=== PATIENT | male | born 1975 | race Caucasian/White ===

== ENCOUNTER 2016-04-21 22:32 | Emergency (ER) | payer SELFPAY ==
[~2016-04-21] VITALS: Ht 180.3 cm; Wt 80.0 kg
[2016-04-21 22:39] VITALS: BP 125/100; PULSE 76; RESP 16; TEMP 97.6; O2SAT 98
[2016-04-21] MEDS ORDERED: KETOROLAC TROMETHAMINE 30 MG/ML (IVP) VIAL IVP ONE (22:45)
[2016-04-21] MEDS ORDERED: SODIUM CHLORIDE 0.9% FLUSH 5 ML FLUSH IVF PRN (22:45)
[2016-04-21 23:24] LABS: AUTOMATED NEUTROPHIL # 6.3 TH/MM3 (1.8-7.7); BASOPHIL # 0.1 TH/MM3 (0-0.2); BASOPHIL % 0.5 % (0.0-2.0); EOSINOPHIL # 0.1 TH/MM3 (0-0.4); EOSINOPHIL % 1.2 % (0.0-4.0); HEMATOCRIT 43.4 % (39.0-51.0); HEMO FLAGS DIFF FINAL; LYMPHOCYTE # 3.4 TH/MM3 (1.0-4.8); MEAN CORPUSCULAR HEMOGLOBIN 28.3 PG (27.0-34.0); MEAN CORPUSCULAR HGB CONC 34.5 % (32.0-36.0); MONO % 7.8 % (0.0-8.0); NEUT % 58.5 % (16.0-70.0); PLATELET COUNT 255 TH/MM3 (150-450); RED BLOOD COUNT 5.29 MIL/MM3 (4.50-5.90); RED CELL DISTRIBUTION WIDTH 13.3 % (11.6-17.2); WHITE BLOOD COUNT 10.7 TH/MM3 (4.0-11.0)
--- NOTE | 2016-04-21 23:30 | RADRPT ---
EXAM DATE/TIME: 04/21/2016 23:00 [place] COMPARISON: No previous studies available for comparison. INDICATIONS : Right flank pain. Difficulty urinating for 1 week. ORAL CONTRAST: No oral contrast ingested. RADIATION DOSE: 13.55 CTDIvol (mGy) MEDICAL HISTORY : None SURGICAL HISTORY : None. ENCOUNTER: Initial ACUITY: 1 week PAIN SCALE: 10/10 LOCATION: Right flank TECHNIQUE: Volumetric scanning of the abdomen and pelvis was performed. Using automated exposure control and ad justment of the mA and/or kV according to patient size, radiation dose was kept as low as reasonably achievable to obtain optimal diagnostic quality images. FINDINGS: LOWER LUNGS: The visualized lower lungs are clear. LIVER: Homogeneous density without lesion for noncontrast technique. There is no dilation of the biliary tr ee. No calcified gallstones. SPLEEN: Normal size without lesion. PANCREAS: Within normal limits. KIDNEYS: Symmetric renal size. There is mild dilation of the collecting system of the right kidney and mild d ilation of the entire right ureter. There is a 3 mm obstructing stone in the distal right ureter krista roximately 1 cm proximal to the ureterovesical junction. No additional calcified stones the collecti ng system the right kidney. No calcified stones or hydronephrosis in the left kidney/ureter. ADRENAL GLANDS: Within normal limits. VASCULAR: There is no aortic aneurysm. BOWEL/MESENTERY: The stomach, small bowel, and colon demonstrate no acute abnormality. There is no free intraperitone al air or fluid. The appendix is identified in the right lower quadrant and is normal appearance. ABDOMINAL WALL: Within normal limits. RETROPERITONEUM: There is no lymphadenopathy. BLADDER: No wall thickening or mass. REPRODUCTIVE: Within normal limits. INGUINAL: There is no lymphadenopathy or hernia. MUSCULOSKELETAL: Within normal limits for patient age. CONCLUSION: Positive renal colic CT with an obstructing 3 mm calcified stone distal right ureter causing mild hyd roureter and hydronephrosis. No additional renal calcifications are seen. Skip Xavier MD on April 21, 2016 at 23:25 Board Certified Radiologist. This report was verified electronically.
[2016-04-21 23:37] LABS: BICARBONATE 26.7 MEQ/L (21.0-32.0); POTASSIUM 3.7 MEQ/L (3.5-5.1)
[2016-04-22 00:10] LABS: BLOOD, URINE SMALL (NEG); COMMENT (UR) CULT NOT INDICATED; CULTURE IF INDICATED CULT NOT INDICATED; GLUCOSE,URINE NEG (NEG); KETONE, URINE TRACE mg/dL (NEG); MUCUS URINE FEW /lpf (OCC); NITRITE,URINE NEG (NEG); PH, URINE 7.5 (5.0-8.5); URINE COLOR YELLOW (YELLW/STRAW)
[2016-04-22] MEDS ORDERED: TAMS5CAP PO (00:43)
[2016-04-22] MEDS ORDERED: HYDR-3534 PO (00:43)
--- NOTE | 2016-04-22 00:43 | PD ---
HPI Chief Complaint: Flank/Kidney Pain Time Seen by Provider: 22:41 Travel History International Travel<30 days: No Contact w/Intl Traveler<30days: No Traveled to known affect area: No History of Present Illness HPI 40-year-old male arrives with right sided flank pain that radiates to the right groin. Duration is been about 2 hours. The pain started suddenly. It has since been severe. He had vague right flank pain which seemed to migrate towards the abdomen over the past few days. He's had no fever. He is observed hematuria. He has a history of kidney stones. Morphine given by EMS helped significantly. [facility] Past Medical History Medical History: Denies Significant Hx Immunizations Current: Yes Past Surgical History Surgical History: No Previous Surgery Social History Alcohol Use: No Tobacco Use: No Substance Use: Yes (marijuana) Allergies-Medications (Allergen,Severity, Reaction): Coded Allergies: No Known Allergies (Unverified , 04/21/16) Reported Meds & Prescriptions Reported Meds & Active Scripts Active Flomax (Tamsulosin HCl) 0.4 Mg Cap 0.4 Mg PO HS Lortab (Hydrocodone-Acetaminophen) 7.5-325 Mg Tab 1-2 Tab PO Q6H PRN Review of Systems Except as stated in HPI: all other systems reviewed are Neg Physical Exam Narrative GENERAL: 40-year-old male distress well-nourished well-developed SKIN: Warm and dry. HEAD: Atraumatic. Normocephalic. EYES: Pupils equal and round. No scleral icterus. No injection or drainage. ENT: No nasal bleeding or discharge. Mucous membranes pink and moist. NECK: Trachea midline. No JVD. CARDIOVASCULAR: Regular rate and rhythm. No murmur appreciated. RESPIRATORY: No accessory muscle use. Clear to auscultation. Breath sounds equal bilaterally. GASTROINTESTINAL: Tenderness to percussion right flank. Soft. MUSCULOSKELETAL: No obvious deformities. No clubbing. No cyanosis. No edema. NEUROLOGICAL: Awake and alert. No obvious cranial nerve deficits. Motor grossly within normal limits. Normal speech. PSYCHIATRIC: Appropriate mood and affect; insight and judgment normal. Data Data Last Documented VS Vital Signs Date Time Temp Pulse Resp B/P Pulse Ox O2 Delivery O2 Flow Rate FiO2 04/21/16 22:39 76 16 125/100 98 Room Air Orders Basic Metabolic Panel (Bmp) (04/21/16 22:42) Complete Blood Count With Diff (04/21/16 22:42) Urinalysis - C+S If Indicated (04/21/16 22:42) Ct Abd/Pel W/O Iv Contrast (04/21/16 22:42) Iv Access Insert/Monitor (04/21/16 22:42) Ecg Monitoring (04/21/16 22:42) Oximetry (04/21/16 22:42) Sodium Chloride 0.9% Flush (Ns Flush) (04/21/16 22:45) Ketorolac Inj (Toradol Inj) (04/21/16 22:45) Morphine Inj (Morphine Inj) (04/22/16 01:15) Tamsulosin (Flomax) (04/22/16 01:15) Labs Laboratory Tests Test 04/21/16 04/21/16 22:56 23:53 White Blood Count 10.7 TH/MM3 Red Blood Count 5.29 MIL/MM3 Hemoglobin 15.0 GM/DL Hematocrit 43.4 % Mean Corpuscular Volume 82.0 FL Mean Corpuscular Hemoglobin 28.3 PG Mean Corpuscular Hemoglobin 34.5 % Concent Red Cell Distribution Width 13.3 % Platelet Count 255 TH/MM3 Mean Platelet Volume 7.8 FL Neutrophils (%) (Auto) 58.5 % Lymphocytes (%) (Auto) 32.0 % Monocytes (%) (Auto) 7.8 % Eosinophils (%) (Auto) 1.2 % Basophils (%) (Auto) 0.5 % Neutrophils # (Auto) 6.3 TH/MM3 Lymphocytes # (Auto) 3.4 TH/MM3 Monocytes # (Auto) 0.8 TH/MM3 Eosinophils # (Auto) 0.1 TH/MM3 Basophils # (Auto) 0.1 TH/MM3 CBC Comment DIFF FINAL Differential Comment Sodium Level 141 MEQ/L Potassium Level 3.7 MEQ/L Chloride Level 104 MEQ/L Carbon Dioxide Level 26.7 MEQ/L Anion Gap 10 MEQ/L Blood Urea Nitrogen 12 MG/DL Creatinine 1.04 MG/DL Estimat Glomerular Filtration 80 ML/MIN Rate Random Glucose 103 MG/DL Calcium Level 8.8 MG/DL Urine Color YELLOW Urine Turbidity HAZY Urine pH 7.5 Urine Specific [place] 1.020 Urine Protein TRACE mg/dL Urine Glucose (UA) NEG mg/dL Urine Ketones TRACE mg/dL Urine Occult Blood SMALL Urine Nitrite NEG Urine Bilirubin NEG Urine Urobilinogen LESS THAN 2.0 MG/DL Urine Leukocyte Esterase NEG Urine RBC 11 /hpf Urine WBC 1 /hpf Urine Mucus FEW /lpf Microscopic Urinalysis Comment CULT NOT INDICATED MDM Medical Decision Making Medical Screen Exam Complete: Yes Emergency Medical Condition: Yes Differential Diagnosis Constipation, Gastritis, Acute Cholecystitis, Biliary Colic, Pancreatitis, BUSH , Hepatitis, Bowel Obstruction, Cystitis, Mesenteric Ischemia, AAA, Appendicitis , Renal Stone/Hydronephrosis, GERD, perforated viscous Narrative Course CBC & BMP Diagram 04/21/16 22:56 Urinalysis: Hematuria present Last 24 hours Impressions Abdomen/Pelvis CT 04/21/16 4122 Signed Impressions: Service Date/Time: Saturday, April 21, 2016 23:00 - CONCLUSION: Positive renal colic CT with an obstructing 3 mm calcified stone distal right ureter causing mild hydroureter and hydronephrosis. No additional renal calcifications are seen. Skip Xavier MD The patient is resting comfortably and feels better, is alert and in no distress. The patients results and examination findings were discussed. The repeat examination is unremarkable and benign. The history, exam, diagnostic testing, and current condition do not suggest any significant pathology to warrant further testing, continued ED treatment, admission, or surgical evaluation at this point. The vital signs have been stable. The patient does not have uncontrollable pain, intractable vomiting, or other significant symptoms. The patient's condition is stable and appropriate for discharge. The patient will pursue further outpatient evaluation with a primary care physician or other designated or consulting physician as indicated in the discharge instructions. The patient expressed understanding and was agreeable with this plan. Diagnosis Primary Impression: Hydronephrosis with urinary obstruction due to ureteral calculus Referrals: Mohan Alonzo MD 2 days Additional Instructions: You have a choice when it comes to health care, and we are glad that you chose [facility]. Hopefully, we have met your expectations on today's visit. You are welcome to return to [facility] at any time, as we are committed to meeting the health care needs of our community. Med/Other Pt SpecificInfo: Prescription(s) given Scripts Tamsulosin (Flomax)0.4 Mg Cap0.4 Mg PO HS #7 CAP Ref 0 Prov:Hernandez Membreno MD 04/22/16 Hydrocodone-Acetaminophen (Lortab)7.5-325 Mg Tab1-2 Tab PO Q6H PRN (PAIN SCALE 6 TO 10) #20 TAB Ref 0 Prov:Hernandez Membreno MD 04/22/16 Disposition: 01 DISCHARGE HOME Condition: Stable Hernandez Membreno MD Apr 22, 2016 00:43
[2016-04-22] MEDS ORDERED: TAMSULOSIN HCL 0.4 MG CAP PO ONE (01:15)
[2016-04-22] MEDS ORDERED: MORPHINE SULFATE 8 MG/ML INJ IV PUSH ONE (01:15)
[2016-04-22 01:30] VITALS: BP 117/73; PULSE 70; RESP 16; O2SAT 98
== END 2016-04-22 01:58 | disposition home or self-care (01) ==
LOC: NEPE 22:32
DX: N13.2 Hydronephrosis with renal and ureteral calculous obstruction (principal); R31.9 Hematuria, unspecified; Z87.442 Personal history of urinary calculi
CPT/HCPCS: 74176; 80048; 81001; 85025; 96374; 99284; J1885; J2270